=== PATIENT | male | born 1970 | race Caucasian/White ===

== ENCOUNTER 2022-03-16 20:04 | Emergency (ER) | payer BC ==
[~2022-03-16] VITALS: Ht 182.9 cm; Wt 106.6 kg
[2022-03-16] MEDS ORDERED: Prinivil10 MG PO (20:24)
[2022-03-16] MEDS ORDERED: PANTOPRAZOLE SO40 M2 PO (20:24)
[2022-03-17 00:04] LABS: Influenza A, PCR NEGATIVE (NEGATIVE); Influenza B, PCR NEGATIVE (NEGATIVE); Resp Syncytial Virus, PCR NEGATIVE (NEGATIVE); SARS-Cov-2 (COVID-19) PCR, MMC NEGATIVE (NEGATIVE)
== END 2022-03-17 01:17 | disposition short-term general hospital (02) ==
LOC: ER 20:04
PROVIDERS: Physician Assistant
DX: T18.128A Food in esophagus causing other injury, initial encounter (principal); Z20.822 Contact with and (suspected) exposure to COVID-19; Z79.899 Other long term (current) drug therapy
CPT/HCPCS: 0241U; 36415; 71046; J1610; J2765